=== PATIENT | male | born 1995 | race Two or more races ===

== ENCOUNTER 2018-04-25 20:35 | Emergency (ER) | payer SELFPAY | END 2018-04-25 20:56 | disposition left against medical advice (07) | LOC: ER 20:35 | DX: F41.9 Anxiety disorder, unspecified (principal); Z53.21 Procedure and treatment not carried out due to patient leaving prior to being seen by health care provider ==

== ENCOUNTER 2024-02-02 11:20 | Emergency (ER) | payer SELFPAY ==
[~2024-02-02] VITALS: Ht 167.6 cm; Wt 75.0 kg
[2024-02-02 11:22] VITALS: TEMP 98.2; O2SAT 99
[2024-02-02 11:45] VITALS: BP 133/83; PULSE 94; RESP 16
[2024-02-02] MEDS: KETOROLAC 15MG/ML VIAL IM ONE (11:45)
[2024-02-02] MEDS ORDERED: LIDO700A15 TP (13:01)
[2024-02-02] MEDS ORDERED: NAPR-1176 MT (13:01)
== END 2024-02-02 15:03 | disposition home or self-care (01) ==
LOC: ER 11:20
DX: M54.50 Low back pain, unspecified (principal); V49.49XA Driver injured in collision with other motor vehicles in traffic accident, initial encounter; Y93.89 Activity, other specified; Y92.89 Other specified places as the place of occurrence of the external cause; Y99.8 Other external cause status
CPT/HCPCS: 99283; 72100; 96372; J1885